=== PATIENT | male | born 1940 | race Caucasian/White ===

== ENCOUNTER 2024-08-27 12:07 | Emergency (ER) | payer MEDICARE | END 2024-08-27 14:35 | disposition home or self-care (01) | LOC: JP.ED 12:07 | DX: S01.111A Laceration without foreign body of right eyelid and periocular area, initial encounter (principal); S50.01XA Contusion of right elbow, initial encounter; Z79.899 Other long term (current) drug therapy; W01.198A Fall on same level from slipping, tripping and stumbling with subsequent striking against other object, initial encounter; Y93.89 Activity, other specified | CPT/HCPCS: 12011; 70450; 70450-26; 73080-26-RT; 73080-RT; 99283; 99284 ==